=== PATIENT | female | born 1980 | race Caucasian/White ===

== ENCOUNTER 2016-10-13 13:44 | Emergency (ER) | payer MEDICAID, OTHER ==
[2016-10-13 13:51] VITALS: BP 122/69; RESP 20
--- NOTE | 2016-10-13 14:39 | ED ---
General Adult HPI - General Chief complaint: Chest Pain Stated complaint: [facility] Time Seen by Provider: 10/13/16 14:17 Source: patient, RN notes reviewed Mode of arrival: ambulatory Limitations: no limitations - History of Present Illness Initial comments: Chief complaint history of present illness a 36-year-old female. 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 While attending to the patient the patient kicked her in the chest with both her feet she fell back into a chair. Complains of anterior chest wall discomfort increases with taking deep breaths. - Related Data Home Medications Medication Instructions Recorded Confirmed ALPRAZolam [Xanax] 0.25 mg PO HS PRN 10/13/16 10/13/16 Previous Rx's Medication Instructions Recorded Ibuprofen [Motrin] 600 mg PO Q6HR PRN #20 tab 10/13/16 Allergies Allergy/AdvReac Type Severity Reaction Status Date / Time No Known Allergies Allergy Verified 10/13/16 14:13 Review of Systems ROS Statement: Those systems with pertinent positive or pertinent negative responses have been documented in the HPI. Review of systems. No complaint of any visual acuity changes no headache no neck pain. Middle of the upper spine but with full range of motion. No bruises noted. Mild anterior chest discomfort with deep breathing and minimal with pushing. No complaint of shortness of breath. No palpitations. No abdominal pain. No extremity pain. No evidence of complaints of any neuro deficits. Past medical problems asthma as a child but no problems since then. Surgeries gallbladder, and septoplasty. Family cancer problems include liver, pancreas, skin and breast. Patient has mild seasonal ALLERGIES. Never smoker. Drinks alcohol socially. Occupation she works in the hospital as a nurse. ROS Other: All systems not noted in ROS Statement are negative. Past Medical History Past Medical History: Asthma, GERD/Reflux Additional Past Medical History / Comment(s): SEASONAL ALLERGIES, HX OF ANEMIA. , HAVING ABDOMINAL PAIN. History of Any Multi-Drug Resistant Organisms: None Reported Past Surgical History: Cholecystectomy Additional Past Surgical History / Comment(s): EXPLORATORY LAP, IN VITRO FERTILIZATION. Past Anesthesia/Blood Transfusion Reactions: No Reported Reaction, Family History of Problems w/ Anesthesia, Motion Sickness Additional Past Anesthesia/Blood Transfusion Reaction / Comment(s): PTS MOTHER= PONV Past Psychological History: No Psychological Hx Reported Smoking Status: Never smoker Past Alcohol Use History: None Reported Past Drug Use History: None Reported - Past Family History Father Family Medical History: Cancer Additional Family Medical History / Comment(s): LIVER/PANCREATIC CANCER General Exam - General Exam Comments Initial Comments: General: The patient is awake and alert, in no distress, and does not appear acutely ill. Patient's chief complaint was that while attending to a patient here at the hospital the patient kicked her with both feet non-Q back into a chair. Vital signs are temperature 97.8 pulse 92 respiratory rate 20 pulse ox on percent room air blood pressure 122/69. BP of 122 systolic noted. The patient is mildly uncomfortable. Eye: Pupils are equal, round and reactive to light, extra-ocular movements are intact ; there is normal conjunctiva bilaterally. No signs of icterus. Ears, nose, mouth and throat: There are moist mucous membranes and no oral lesions. Neck: The neck is supple, there is no tenderness , no anterior cervical lymphadenopathy. Cardiovascular: There is a regular rate and rhythm. No murmur, rub or gallop is appreciated. Respiratory: Lungs are clear to auscultation, respirations are non-labored, breath sounds are equal. No wheezes, stridor, rales, or rhonchi. Mild discomfort with deep inspiration. Gastrointestinal: Soft, non-distended, non-tender abdomen without masses or organomegaly noted. There is no rebound or guarding present. No CVA tenderness. Bowel sounds are unremarkable. Back: Minimal tenderness to upper thoracic region posteriorly. But with full range of motion. No bruising noted. Musculoskeletal: Normal ROM, no tenderness, There is no pedal edema. There is no calf tenderness or swelling. Sensation intact. Neurological: No evidence of her complaints of any neurological deficits. No focal or lateralizing findings appreciated. Skin: Skin is warm and dry and no rashes or lesions are noted. Limitations: no limitations Course Vital Signs 10/13/16 13:49 Temperature 97.8 F Pulse Rate 92 Respiratory 20 Rate Blood Pressure 122/69 O2 Sat by Pulse 100 Oximetry Medical Decision Making - Medical Decision Making Medical decision making; patient's chest x-ray was done AP and lateral view and reviewed by radiologist. His impression is no acute cardiopulmonary process. As read by Dr. Henderson Patient be discharged back to work. Told follow up with [facility] as needed. And/or her family physician. Advised to take ibuprofen or Tylenol for discomfort. Disposition Clinical Impression: Chest wall contusion Disposition: HOME SELF-CARE Condition: Fair Instructions: Contusion in Adults (ED) Additional Instructions: Use Tylenol or ibuprofen for discomfort. Follow-up with family physician or [facility] as directed. Return emergency room as needed. Prescriptions: Ibuprofen [Motrin] 600 mg PO Q6HR PRN #20 tab PRN Reason: Pain Time of Disposition: 15:29
--- NOTE | 2016-10-13 15:13 | XR ---
EXAMINATION TYPE: XR chest 2V DATE OF EXAM: 10/13/2016 3:00 PM COMPARISON: NONE HISTORY: Trauma, pain TECHNIQUE: Frontal and lateral views of the chest are obtained. FINDINGS: There is no focal air space opacity, pleural effusion, or pneumothorax seen. The cardiac silhouette size is within normal limits. Surgical clips in the right upper quadrant. The osseous st ructures are intact. IMPRESSION: No acute cardiopulmonary process.
[2016-10-13 15:37] VITALS: PULSE 98; TEMP 98
== END 2016-10-13 15:37 | disposition home or self-care (01) ==
LOC: EC 13:44
DX: S20.219A Contusion of unspecified front wall of thorax, initial encounter (principal); W07.XXXA Fall from chair, initial encounter; Y92.239 Unspecified place in hospital as the place of occurrence of the external cause; Y99.0 Civilian activity done for income or pay
CPT/HCPCS: 71020; 99284

== ENCOUNTER → 2017-02-11 | Outpatient (CLI) | payer BC ==
--- NOTE | 2017-02-11 13:04 | US ---
EXAMINATION TYPE: US axilla extremity LT DATE OF EXAM: 02/11/2017 COMPARISON: NONE CLINICAL HISTORY: Mass R22.9. Pt states left axilla pain and swelling Normal appearing lymph nodes within left axilla 4-5 mm in size/ No abnormality appreciated IMPRESSION: 1. NO AXILLARY MASS. 2. NORMAL-SIZED AXILLARY LYMPH NODES.
== END | disposition home or self-care (01) ==
LOC: RADUSWWP 12:24
PROVIDERS: ATTEND Family Medicine
DX: R22.32 Localized swelling, mass and lump, left upper limb (principal)

== ENCOUNTER → 2018-02-24 | Outpatient (CLI) | payer SELFPAY ==
--- NOTE | 2018-03-06 11:41 | MM ---
Reason for exam: screening (asymptomatic). Last mammogram was performed 1 year and 10 months ago. History: Family history of breast cancer in maternal grandmother at age 50. Took hormonal contraceptives for 8 years beginning at age 20. Took other hormone for 2 years beginning at age 30. Physical Findings: A clinical breast exam by your physician is recommended on an annual basis and results should be correlated with mammographic findings. MG 3D Screening Mammo W/Cad Bilateral CC and MLO view(s) were taken. Prior study comparison: April 29, 2016, bilateral MG 3d screening mammo w/cad. The breast tissue is heterogeneously dense. This may lower the sensitivity of mammography. There is no discrete abnormality. No significant changes when compared with prior studies. ASSESSMENT: Negative, BI-RAD 1 RECOMMENDATION: Routine screening mammogram of both breasts in 1 year.
== END | disposition home or self-care (01) ==
LOC: RADMAMWWP 11:07
PROVIDERS: ATTEND Family Medicine
DX: Z12.31 Encounter for screening mammogram for malignant neoplasm of breast (principal)
CPT/HCPCS: 77063; 77067

== ENCOUNTER → 2019-12-14 | Outpatient (CLI) | payer BC ==
--- NOTE | 2019-12-18 08:23 | MM ---
Reason for exam: screening (asymptomatic). Last mammogram was performed 1 year and 10 months ago. History: Family history of breast cancer in maternal grandmother at age 50. Took hormonal contraceptives for 8 years beginning at age 20. Took other hormone for 2 years beginning at age 30. Physical Findings: A clinical breast exam by your physician is recommended on an annual basis and results should be correlated with mammographic findings. MG 3D Screening Mammo W/Cad Bilateral CC and MLO view(s) were taken. Prior study comparison: February 24, 2018, bilateral MG 3d screening mammo w/cad. April 29, 2016, bilateral MG 3d screening mammo w/cad. The breast tissue is heterogeneously dense. This may lower the sensitivity of mammography. There is no discrete abnormality. ASSESSMENT: Negative, BI-RAD 1 RECOMMENDATION: Routine screening mammogram of both breasts in 1 year.
== END | disposition home or self-care (01) ==
LOC: RADMAMWWP 15:49
PROVIDERS: ATTEND Family Medicine
DX: Z12.31 Encounter for screening mammogram for malignant neoplasm of breast (principal); Z80.3 Family history of malignant neoplasm of breast
CPT/HCPCS: 77063; 77067

== ENCOUNTER → 2021-08-28 | Outpatient (CLI) | payer BC ==
--- NOTE | 2021-08-28 17:39 | US ---
EXAMINATION TYPE: US axilla LT DATE OF EXAM: 08/28/2021 COMPARISON: NONE CLINICAL HISTORY: R22.9 Lump left axilla. Lt axilla palpable lump with pain for the past 6 weeks neva ent is currently 24 weeks . No mass or fluid collection seen in area of concern IMPRESSION: No evidence of mass or fluid collection.
== END | disposition home or self-care (01) ==
LOC: RADUSWWP 15:13
PROVIDERS: ATTEND Family Medicine
DX: R22.9 Localized swelling, mass and lump, unspecified (principal)

== ENCOUNTER 2021-12-04 08:16 | Inpatient (IN) | payer BC ==
[2021-12-17] MEDS ORDERED: LIDOCAINE 0.5% (PF) 5 MG/ML (50 ML SDV) SQ PRN (00:52)
[2021-12-17] MEDS ORDERED: OXYTOCIN 10 UNIT/ML 1 ML VIAL IM PRN (00:52)
[2021-12-17] MEDS ORDERED: TERBUTALINE 1 MG/ML VIAL SQ PRN (00:52)
[2021-12-17] MEDS ORDERED: CARBOPROST TROMETHAMINE 250 MCG/ML 1 ML AMP IM PRN (00:52)
[2021-12-17] MEDS ORDERED: METHYLERGONOVINE 0.2 MG/ML 1 ML AMP IM PRN (00:52)
[2021-12-17] MEDS: LACTATED RINGERS 1,000 ML IV SCH ×2 (01:20→13:44)
[2021-12-17 01:36] LABS: Basophils # (A) 0.1 k/uL (0-0.2); Basophils % (A) 1 %; Eosinophils # (A) 0.1 k/uL (0-0.7); Eosinophils % (A) 1 %; HCT 34.2 % (34.0-46.0); HGB 11.4 gm/dL (11.4-16.0); Lymphocytes # (A) 1.1 k/uL (1.0-4.8); Lymphocytes % (A) 10 %; MCH 32.4 pg (25.0-35.0); MCHC 33.3 g/dL (31.0-37.0); MCV 97.3 fL (80.0-100.0); Mean Platelet Volume 7.8; Monocytes # (A) 0.6 k/uL (0-1.0); Monocytes % (A) 6 %; Neutrophils # (A) 8.4 k/uL (1.3-7.7); Neutrophils % (A) 81 %; Platelet Count 221 k/uL (150-450); RBC 3.51 m/uL (3.80-5.40); RDW 13.3 % (11.5-15.5); WBC 10.3 k/uL (3.8-10.6)
[2021-12-17] MEDS ORDERED: ROPIVACAINE 100 MG, fentaNYL (PF). 200 MCG in SODIUM CHLORIDE 0.9% 76 ML EPIDURAL ONE (02:01)
--- NOTE | 2021-12-17 06:37 | P.HPOB ---
History of Present Illness H&P Date: 12/17/21 Chief Complaint: Labor at 39-4/7 weeks This is a 41 year old 4 para 2012 woman who is admitted at 39-4/7 weeks gestation in active labor. Her has been uncomplicated up until this point. She has had approximately 24 hours of latent labor but did eventually make cervical change in triage and is admitted. Obstetric history significant for normal spontaneous vaginal deliveries in 2010 and 2012. VTOP in 1999. Laboratory data: Blood type A+, antibody screen negative, rubella immune, VDRL nonreactive, hep Beatriz surface antigen negative, HIV negative, gonorrhea and clinic cultures negative, group B strep negative, glucose tolerance testing within normal limits. Review of Systems All systems: negative Past Medical History Past Medical History: Asthma, GERD/Reflux Additional Past Medical History / Comment(s): SEASONAL ALLERGIES, HX OF ANEMIA., HAVING ABDOMINAL PAIN. History of Any Multi-Drug Resistant Organisms: None Reported Past Surgical History: Cholecystectomy Additional Past Surgical History / Comment(s): EXPLORATORY LAP, IN VITRO FERTILIZATION. Past Anesthesia/Blood Transfusion Reactions: No Reported Reaction, Family History of Problems w/ Anesthesia, Motion Sickness Additional Past Anesthesia/Blood Transfusion Reaction / Comment(s): PTS MOTHER=PONV Past Psychological History: No Psychological Hx Reported Smoking Status: Never smoker Past Alcohol Use History: None Reported Past Drug Use History: None Reported - Past Family History Father Family Medical History: Cancer Additional Family Medical History / Comment(s): LIVER/PANCREATIC CANCER Medications and Allergies Home Medications Medication Instructions Recorded Confirmed Type Aspirin [Children's Aspirin] 81 mg PO DAILY 12/16/21 12/16/21 History L.acidoph,Paracasei, B.lactis 1 each PO DAILY 12/16/21 12/16/21 History [Probiotic] Metoclopramide [Reglan] 10 mg PO DAILY PRN 12/16/21 12/16/21 History Pnv No.95/Ferrous Fum/Folic AC 1 each PO DAILY 12/16/21 12/16/21 History [ Multivitamin Tablet] Allergies Allergy/AdvReac Type Severity Reaction Status Date / Time No Known Allergies Allergy Verified 12/16/21 09:42 Exam Vital Signs Temp Pulse Resp BP 12/17/21 00:51 97.2 F L 89 16 121/69 Intake and Output 12/16/21 12/16/21 12/17/21 14:59 22:59 06:59 Other: Weight 82.554 kg Targeted physical exam is performed. This is a visibly gravid female. On pelvic examination the cervix is 5 cm dilated, 80% effaced and the vertex in the -2 station. Artificial rupture of membranes is undertaken and meconium stained fluid is noted. heart tones are category 1. She is irregularly markus every 2-7 minutes. Results Result Diagrams: 12/17/21 01:17 Abnormal Lab Results - Last 24 Hours (Table) 12/17/21 Range/Units 01:17 RBC 3.51 L (3.80-5.40) m/uL Neutrophils # 8.4 H (1.3-7.7) k/uL Assessment and Plan (1) Advanced maternal age (AMA) in Current Visit: Yes Status: Acute Code(s): YLI2406 - SNOMED Code(s): 626994288 (2) Spontaneous onset of labor Current Visit: Yes Status: Acute Code(s): BIR6487 - SNOMED Code(s): 85598559 (3) Meconium in amniotic fluid Current Visit: Yes Status: Acute Code(s): P96.83 - MECONIUM STAINING SNOMED Code(s): 5787470 Plan: 41-year-old 4 para 2 woman admitted at 39-4/7 weeks gestation in spontaneous active labor. Meconium is noted in the fluid. status is currently reassuring by external monitoring. She is group B strep negative and Rh+. She has epidural anesthetic in place and I anticipate normal spontaneous vaginal delivery.
[2021-12-17] MEDS ORDERED: OXYTOCIN 30 UNITS/500 ML NS 30 UNIT in SALINE 1 500ML.BAG IV SCH ×2 (06:45→11:15)
[2021-12-17] MEDS ORDERED: ONDANSETRON 4 MG/2 ML VIAL IVP STA (09:12)
[2021-12-17] MEDS ORDERED: diphenhydrAMINE 50 MG/ML 1 ML VIAL IVP PRN ×2 (11:06)
[2021-12-17] MEDS ORDERED: diphenhydrAMINE 25 MG CAP PO PRN (11:06)
[2021-12-17] MEDS ORDERED: BENZOCAINE/MENTHOL SPRAY 1 GM/SPRAY AEROSOL TOPICAL PRN (11:06)
[2021-12-17] MEDS ORDERED: diphenhydrAMINE 50 MG CAP PO PRN (11:06)
[2021-12-17] MEDS ORDERED: LANOLIN CREAM 5 GM TUBE TOPICAL PRN (11:06)
[2021-12-17] MEDS ORDERED: HYDROCORTISONE 2.5% RECTAL CREAM 30 GM TUBE RECTAL PRN (11:06)
[2021-12-17] MEDS ORDERED: ZOLPIDEM 5 MG TAB PO PRN (11:06)
[2021-12-17] MEDS ORDERED: SIMETHICONE 80 MG CHEWABLE PO PRN (11:06)
--- NOTE | 2021-12-17 11:06 | P.PROBDLV ---
Vaginal Delivery Note - . Vaginal Delivery Note: Findings: Female in the vertex right occiput anterior position with nuchal cord 1. Apgars of 8 at 1 minute and 9 at 5 minutes. Weight 8 lbs. 4 oz. Intact, three-vessel cord. First-degree perineal laceration. EBL 100 mL's. Delivery summary: This is a 41-year-old 4 para 2012 woman who presented at 39-4/7 weeks gestation in spontaneous active labor. Following admission she received an epidural anesthetic. Her contractions did space out and Pitocin augmentation was initiated. She at 5 cm dilated she underwent artificial rupture of membranes and meconium-stained fluid was noted. She had category 1 heart tones in the first stage. She did reach complete cervical dilation and began pushing with excellent maternal effort. With a couple of pushes she brought the vertex to . At that time she was repositioned, prepped and draped on in modified Ethel position. With additional maternal effort the head delivered from the right occiput anterior position. Nuchal cord 1 was reduced. Anterior followed by the posterior shoulders were delivered without difficulty over a first-degree perineal laceration. The rest the was delivered onto the field and the nose and mouth were bulb suctioned. Infant had a vigorous cry on the perineum. The infant was placed on the maternal abdomen and the cord was clamped and cut. The infant was taken to the warmer for pediatric evaluation. The perineum was inspected and a first-degree laceration was noted. This was infused with lidocaine and repaired with 3-0 Vicryl suture in the usual fashion. An intact, three-vessel cord placenta was then expressed after a less than 5 minute third stage of labor. The uterus was massaged and was noted to be firm below the level of the umbilicus. The vagina was further inspected as was the perineum and no further lacerations were noted. Both mother and infant were doing well post delivery in the room.
[2021-12-17] MEDS: IBUPROFEN 600 MG TAB PO PRN ×2 (11:42→18:06)
[2021-12-17] MEDS: ACETAMINOPHEN TAB 325 MG TAB PO PRN ×2 (13:18→19:44)
[2021-12-17] MEDS: SENNOSIDES-DOCUSATE SODIUM 1 EACH TAB PO SCH (22:43)
[2021-12-18] MEDS: IBUPROFEN 600 MG TAB PO PRN ×2 (01:11→08:11)
[2021-12-18] MEDS: ACETAMINOPHEN TAB 325 MG TAB PO PRN ×2 (05:16→11:01)
[2021-12-18 06:56] LABS: Basophils % (A) 0 %; Eosinophils # (A) 0.2 k/uL (0-0.7); Eosinophils % (A) 2 %; HCT 29.6 % (34.0-46.0); Lymphocytes # (A) 1.2 k/uL (1.0-4.8); Lymphocytes % (A) 14 %; MCH 32.6 pg (25.0-35.0); MCHC 33.3 g/dL (31.0-37.0); MCV 97.8 fL (80.0-100.0); Mean Platelet Volume 8.2; Monocytes # (A) 0.4 k/uL (0-1.0); Monocytes % (A) 5 %; Neutrophils # (A) 6.4 k/uL (1.3-7.7); Neutrophils % (A) 75 %; Platelet Count 215 k/uL (150-450); RBC 3.03 m/uL (3.80-5.40); WBC 8.6 k/uL (3.8-10.6)
[2021-12-18 07:07] LABS: HGB 9.9 gm/dL (11.4-16.0)
[2021-12-18] MEDS: SENNOSIDES-DOCUSATE SODIUM 1 EACH TAB PO SCH (08:11)
--- NOTE | 2021-12-18 09:04 | P.DS ---
Providers Date of admission: 12/17/21 00:37 Expected date of discharge: 12/18/21 Attending physician: Anya Espinoza Primary care physician: Hemal Lance - Discharge Diagnosis(es) (1) Advanced maternal age (AMA) in Current Visit: Yes Status: Acute (2) Spontaneous onset of labor Current Visit: Yes Status: Acute (3) Meconium in amniotic fluid Current Visit: Yes Status: Acute (4) Normal spontaneous vaginal delivery Current Visit: Yes Status: Acute (5) Nuchal cord Current Visit: Yes Status: Acute (6) Perineal laceration with delivery, first degree Current Visit: Yes Status: Acute Hospital Course: This is a 41-year-old 4 now para 3 woman who was admitted at 39-4/7 weeks gestation in spontaneous active labor. Following admission she did receive an epidural anesthetic. She required Pitocin augmentation of labor. She underwent artificial rupture of membranes and meconium-stained fluid was noted. She had category 1 heart tones throughout her first stage of labor. She reached complete cervical dilation and had a rapid second stage of labor. She delivered a liveborn female over a first-degree perineal laceration. Nuchal cord 1. Apgars of 8 at 1 minute and 9 at 5 minutes weighing 8 lbs. 4 oz. Please see the delivery summary for details. The patient's course was unremarkable. By day #1 her vital signs were stable, hemoglobin was 9.9 and her lochia was decreasing. She was breast-feeding successfully. Her pain was well-controlled. She was ambulating and voiding without difficulty. She was therefore discharged home with routine instructions for care and follow-up. Patient Condition at Discharge: Good Plan - Discharge Summary New Discharge Prescriptions: No Action Pnv No.95/Ferrous Fum/Folic AC [ Multivitamin Tablet] 1 each PO DAILY Metoclopramide [Reglan] 10 mg PO DAILY PRN PRN Reason: Nausea L.acidoph,Paracasei, B.lactis [Probiotic] 1 each PO DAILY Aspirin [Children's Aspirin] 81 mg PO DAILY Discharge Medication List Aspirin [Children's Aspirin] 81 mg PO DAILY 12/16/21 [History] L.acidoph,Paracasei, B.lactis [Probiotic] 1 each PO DAILY 12/16/21 [History] Metoclopramide [Reglan] 10 mg PO DAILY PRN 12/16/21 [History] Pnv No.95/Ferrous Fum/Folic AC [ Multivitamin Tablet] 1 each PO DAILY 12/16/21 [History] Follow up Appointment(s)/Referral(s): Anya Espinoza MD [STAFF PHYSICIAN] - 6 Weeks Activity/Diet/Wound Care/Special Instructions: Follow-up in the office in 6 weeks . Call with any concerning signs or symptoms including heavy vaginal bleeding, severe abdominal pain, fever greater than 101, swelling or redness of the lower extremities, foul vaginal discharge, or signs of depression. Nothing in the vagina for 6 weeks after delivery, specifically no intercourse. Discharge Disposition: HOME SELF-CARE
[2021-12-18 09:44] VITALS: RESP 16
[2021-12-18 13:16] VITALS: BP 99/53; PULSE 88; TEMP 97.9
== END 2021-12-18 12:35 | disposition home or self-care (01) | DRG 807 ==
LOC: 4FBP 12-17 00:37
PROVIDERS: ADMIT Obstetrics & Gynecology; ATTEND Obstetrics & Gynecology
PROC: 10E0XZZ Delivery of Products of Conception, External Approach (ICD-10-PCS; principal; 2021-12-17)
PROC: 0HQ9XZZ Repair Perineum Skin, External Approach (ICD-10-PCS; 2021-12-17)
DX: O69.81X0 Labor and delivery complicated by cord around neck, without compression, not applicable or unspecified (principal); Z37.0 Single live birth; O09.523 Supervision of elderly multigravida, third trimester; O99.52 Diseases of the respiratory system complicating childbirth; J45.909 Unspecified asthma, uncomplicated; O70.0 First degree perineal laceration during delivery; O77.0 Labor and delivery complicated by meconium in amniotic fluid; Z3A.39 39 weeks gestation of pregnancy; Z79.82 Long term (current) use of aspirin
CPT/HCPCS: 85025; 86850; 86900; 86901

== ENCOUNTER 2021-12-16 09:24 | Outpatient (CLI) | payer BC ==
[2021-12-16] MEDS ORDERED: LACTATED RINGERS 1,000 ML IV SCH (10:30)
[2021-12-16 12:45] VITALS: BP 131/66; PULSE 96; RESP 17
--- NOTE | 2021-12-29 08:16 | P.MSEPDOC ---
Presenting Problems - Arrival Data Date of Arrival on Unit: 12/16/21 Time of Arrival on Unit: 09:24 Mode of Transport: Ambulatory - Complaint OB-Reason for Admission/Chief Complaint: Possible Onset of Labor Comment: pt presents to triage for contractions and difficulty urinating Medical History - Information : 3 Para: 2 Term: 2 : 0 Abortions: Spontaneous or Elective: 0 Number of Living Children: 2 - Gestational Age Gestational Age by SAMMI (wks/days): 39 Weeks and 3 Days Review of Systems - Review of Systems Constitutional: No problems Breast: No problems ENT: No problems Cardiovascular: No problems Respiratory: No problems Gastrointestinal: No problems Genitourinary: No problems Musculoskeletal: No problems Neurological: No problems Skin: No problems Vital Signs - Pulse Right Radial Pulse Rate: 96 Pulse Assessment Method: Automatic Cuff - Respirations Respiratory Rate: 17 Oxygen Delivery Method: Room Air - Blood Pressure Right Arm Blood Pressure: 131/66 Blood Pressure Mean: 87 Blood Pressure Source: Automatic Cuff Medical Screen Scoring - Cervical Exam Dilation (cm): 3 Effacement (%): 80 Station: -2 Membranes: Intact - Uterine Contractions Frequency From (mins): 2 Frequency To (mins): 7 Duration From (seconds): 50 Duration To (seconds): 70 Intensity: Mild Resting: Soft to palpation - Assessment - Baby A Baseline FHR: 140 Heart Rate - NICHD Category: Category I (Normal) NST: Reactive Physician Notification - Physician Notified Physician Notified Date: 12/16/21 Physician Notified Time: 12:04 Physician: Anya Espinoza Order Received: Yes - Notification Comment Comment: pt has cat 1 FHT's, contractions 2-7 min apart, pt rates pain at 6- 18/10, given one bag of LR, 3 cervical exams performed without change on the last 2 exams, pt discharged home, she is scheduled for IOL tomorrow, she will return in am or before with any other concerns of labor Maternal Triage Index - Maternal Triage Index Presenting for scheduled procedure w/no complaint: No - Stat/Priority 1 Stat Priority 1: No - Urgent/Priority 2 Urgent Priority 2: No - Prompt/Priority 3 Prompt Priority 3: Yes Criteria Met for Priority 3: pt presents to triage for contractions and difficulty urinating, GA 39 09/21 Disposition - Disposition OB Disposition: Triage, Discharge to home, Written follow up instructions reviewed Discharge Date: 12/16/21 Discharge Time: 12:20 I agree with the RN Medical Screening Exam: Yes Case reviewed; plan agreed upon as documented in EMR&OBIX.: Yes Diagnosis: Latent labor at term
== END 2021-12-16 12:20 | disposition home or self-care (01) ==
LOC: FBPOP 09:24
PROVIDERS: ATTEND Obstetrics & Gynecology
DX: O63.9 Long labor, unspecified (principal); Z3A.39 39 weeks gestation of pregnancy
CPT/HCPCS: 59025; 96360; 96361; 99214

== ENCOUNTER → 2022-06-01 | Outpatient (CLI) | payer BC ==
--- NOTE | 2022-06-01 10:23 | MR ---
EXAMINATION TYPE: MR brain and iac wo/w con DATE OF EXAM: 06/01/2022 COMPARISON: NONE HISTORY: Right hearing loss CONTRAST: mL MultiHance TECHNIQUE: T1-weighted sagittal, diffusion, T2, and FLAIR axial views of the brain are submitted. The high-reso lution T2 axial and postcontrast T1 axial and coronal views of the IACs are submitted. CONTRAST: 7 mL Gadavist FINDINGS: There is no pathologic enhancement of the seventh and eighth cranial nerve complex. There is no acou stic neuroma. Changes of right-sided mastoiditis is noted and there are findings compatible with chronic sinusitis. Orbits are symmetric. Craniocervical junction maintained. Sella turcica are normal. Ventricles, basal cisterns, and sulci overlying the convexities are compatible patient's age. No siza ble areas of abnormal signal are seen within the white matter. No midline shift or mass effect. Diffu tameka imaging demonstrates no evidence of acute ischemia. Postcontrast images demonstrate no evidence of enhancing mass or mass effect. No cerebellopontine ang le mass. IMPRESSION: 1. No cerebellopontine angle mass or acoustic schwannoma. 2. Right-sided mastoiditis. 3. Chronic sinusitis
== END | disposition home or self-care (01) ==
LOC: RADMRIMAIN 09:04
PROVIDERS: ATTEND Otolaryngology
DX: J32.9 Chronic sinusitis, unspecified (principal); H70.91 Unspecified mastoiditis, right ear
CPT/HCPCS: 70553; A9585

== ENCOUNTER 2022-08-10 20:39 | Emergency (ER) | payer BC ==
[2022-08-10 20:42] VITALS: TEMP 97.5
[2022-08-10] MEDS ORDERED: SODIUM CHLORIDE 0.9% 1,000 ML IV STA (21:14)
[2022-08-10] MEDS ORDERED: ONDANSETRON 4 MG/2 ML VIAL IVP STA (21:14)
[2022-08-10] MEDS ORDERED: HYDROmorphone 0.5 MG/0.5 ML SYRINGE IVP STA (21:15)
[2022-08-10 21:43] LABS: ALT 56 U/L (4-34); AST 121 U/L (14-36); African American GFR (CKD) >90 (>60 ml/min/1.73 sqM); Albumin 4.5 g/dL (3.5-5.0); Alkaline Phosphatase 86 U/L (38-126); Anion Gap 7 mmol/L; Appearance,Urine Clear (Clear); Bilirubin,Urine Negative (Negative); Blood Urea Nitrogen 16 mg/dL (7-17); Blood,Urine Small (Negative); Calcium 9.2 mg/dL (8.4-10.2); Carbon Dioxide 29 mmol/L (22-30); Chloride 105 mmol/L (98-107); Color,Urine Light Yellow; Glucose 116 mg/dL (74-99); Glucose,Urine (UA) Negative (Negative); Ketones,Urine Negative (Negative); Leukocyte Esterase,Urine Negative (Negative); Lipase 122 U/L (23-300); Nitrite,Urine Negative (Negative); Non-African American GFR(CKD) >90 (>60 ml/min/1.73 sqM); Potassium 3.8 mmol/L (3.5-5.1); Protein,Urine Negative (Negative); RBC,Urine 5 /hpf (0-5); Sodium 141 mmol/L (137-145); Specific Gravity,Urine 1.014 (1.001-1.035); Squamous Epithelial Cell,Urine <1 /hpf (0-4); Total Bilirubin 0.3 mg/dL (0.2-1.3); Total Protein 7.2 g/dL (6.3-8.2); Urobilinogen,Urine <2.0 mg/dL (<2.0); WBC,Urine <1 /hpf (0-5)
--- NOTE | 2022-08-10 22:09 | ED ---
Abdominal Pain HPI - General Chief Complaint: Abdominal Pain Stated Complaint: abd pain Time Seen by Provider: 08/10/22 20:47 Source: patient, family, RN notes reviewed Mode of arrival: ambulatory Limitations: no limitations - History of Present Illness Initial Comments: 42-year-old female presents emergency Department chief complaint of epigastric pain. Patient states that she felt dizzy throughout the day is it feel well but states that she went to sleep and states that she started having severe pain. Patient states that it is in her epigastric and radiates up. She did take 2 Tums prior arrival which seemed to help for a few minutes. Patient denies any fevers or chills she's had a prior cholecystectomy by Dr. humphries. Patient states that she's had multiple bowel movements today. Patient denies any dysuria hematuria patient offers no complaints. - Related Data Home Medications Medication Instructions Recorded Confirmed Aspirin [Children's Aspirin] 81 mg PO DAILY 12/16/21 12/17/21 L.acidoph,Paracasei, B.lactis 1 each PO DAILY 12/16/21 12/17/21 [Probiotic] Metoclopramide [Reglan] 10 mg PO DAILY PRN 12/16/21 12/17/21 Pnv No.95/Ferrous Fum/Folic AC 1 each PO DAILY 12/16/21 12/17/21 [ Multivitamin Tablet] Previous Rx's Medication Instructions Recorded Ondansetron Odt [Zofran Odt] 4 mg PO Q8HR PRN #14 tab 08/10/22 Allergies Allergy/AdvReac Type Severity Reaction Status Date / Time No Known Allergies Allergy Verified 12/16/21 09:42 Review of Systems ROS Statement: Those systems with pertinent positive or pertinent negative responses have been documented in the HPI. ROS Other: All systems not noted in ROS Statement are negative. Past Medical History Past Medical History: Asthma, GERD/Reflux Additional Past Medical History / Comment(s): SEASONAL ALLERGIES, HX OF ANEMIA., HAVING ABDOMINAL PAIN. postpardum History of Any Multi-Drug Resistant Organisms: None Reported Past Surgical History: Cholecystectomy Additional Past Surgical History / Comment(s): EXPLORATORY LAP, IN VITRO FERTILIZATION. Past Anesthesia/Blood Transfusion Reactions: No Reported Reaction, Family History of Problems w/ Anesthesia, Motion Sickness Additional Past Anesthesia/Blood Transfusion Reaction / Comment(s): PTS MOTHER=PONV Past Psychological History: No Psychological Hx Reported Smoking Status: Never smoker Past Alcohol Use History: None Reported Past Drug Use History: None Reported - Past Family History Father Family Medical History: Cancer Additional Family Medical History / Comment(s): LIVER/PANCREATIC CANCER General Exam Limitations: no limitations General appearance: alert, in no apparent distress Head exam: Present: atraumatic, normocephalic, normal inspection Eye exam: Present: normal appearance, PERRL, EOMI. Absent: scleral icterus, conjunctival injection, periorbital swelling ENT exam: Present: normal exam, normal oropharynx, mucous membranes moist Neck exam: Present: normal inspection, full ROM. Absent: tenderness, meningismus, lymphadenopathy Respiratory exam: Present: normal lung sounds bilaterally. Absent: respiratory distress, wheezes, rales, rhonchi, stridor Cardiovascular Exam: Present: normal rhythm, tachycardia, normal heart sounds. Absent: systolic murmur, diastolic murmur, rubs, gallop, clicks GI/Abdominal exam: Present: soft, tenderness, normal bowel sounds. Absent: distended, guarding, rebound, rigid Back exam: Absent: CVA tenderness (R), CVA tenderness (L) Skin exam: Present: warm, dry, intact, normal color. Absent: rash Course Vital Signs 08/10/22 08/10/22 20:39 22:10 Temperature 97.5 F L Pulse Rate 109 H 98 Respiratory 24 17 Rate Blood Pressure 145/89 121/70 O2 Sat by Pulse 99 98 Oximetry Medical Decision Making - Medical Decision Making Was pt. sent in by a medical professional or institution (, PA, PUBLIC INFORMATION DIRECTOR, urgent care, hospital, or chcf...) When possible be specific @ -No Did you speak to anyone other than the patient for history (EMS, parent, family, police, friend...)? What history was obtained from this source @ -No Did you review nursing and triage notes (agree or disagree)? Why? @ -I reviewed and agree with nursing and triage notes Were old charts reviewed (outside hosp., previous admission, EMS record, old EKG, old radiological studies, urgent care reports/EKG's, chcf records)? Report findings @ -No old charts were reviewed Differential Diagnosis (chest pain, altered mental status, abdominal pain women, abdominal pain men, vaginal bleeding, weakness, fever, dyspnea, syncope, headache, dizziness, GI bleed, back pain, seizure, CVA, palpatations, mental health)? @ -[Differential Abdominal Pain Women: Appendicitis, Cholecystitis, diverticulosis, ischemic bowel, pancreatitis, hepatitis, UTI, gastroenteritis, AAA, incarcerated hernia, bowel obstruction, constipation, inflammatory bowel, hepatitis, peptic ulcer disease, splenic infarction, perforated viscus, vulvitis, ovarian torsion, PID, kidney stone, placenta abruption, this is not meant to be an all-inclusive list EKG interpreted by me (3pts min.). @ -None X-rays interpreted by me (1pt min.). @ -None done CT interpreted by me (1pt min.). @ -[CT of the abdomen pelvis did not show any acute intra-abdominal process still there is a large amount of food bolus stomach, small intestine with moderate stool noted U/S interpreted by me (1pt. min.). @ -None done What testing was considered but not performed or refused? (CT, X-rays, U/S, labs)? Why? @ -None What meds were considered but not given or refused? Why? @ -None Did you discuss the management of the patient with other professionals (professionals i.e. , PA, PUBLIC INFORMATION DIRECTOR, lab, RT, psych nurse, social studies department chair, student specialist, teacher, chief operating officer, rn case manager)? Give summary @ -No Was smoking cessation discussed for >3mins.? @ -No Was critical care preformed (if so, how long)? @ -No Were there social determinants of health that impacted care today? How? (Homelessness, low income, unemployed, alcoholism, drug addiction, transportation, low edu. Level, literacy, decrease access to med. care, senior living, rehab)? @ -No Was there de-escalation of care discussed even if they declined (Discuss DNR or withdrawal of care, Hospice)? DNR status @ -No What co-morbidities impacted this encounter? (DM, HTN, Smoking, COPD, CAD, Cancer, CVA, ARF, Chemo, Hep., AIDS, mental health diagnosis, sleep apnea, morbid obesity)? @ -None Was patient admitted / discharged? Hospital course, mention meds given and route, prescriptions, significant lab abnormalities, going to OR and other pertinent info. @ -Discharge I did offer admission secondary to ongoing abdominal pain there is concerns for delayed gastric emptying on CT showing large food bolus stomach patient states that she wants try going home at this time. Offered surgery consult with [facility]. Labs are unremarkable. Undiagnosed new problem with uncertain prognosis? @ -No Drug Therapy requiring intensive monitoring for toxicity (Heparin, Nitro, Insulin, Cardizem)? @ -No Were any procedures done? @ -No Diagnosis/symptom? @ -Abdominal pain Acute, or Chronic, or Acute on Chronic? @ -Acute Uncomplicated (without systemic symptoms) or Complicated (systemic symptoms)? @ -Uncomplicated Side effects of treatment? @ -No Exacerbation, Progression, or Severe Exacerbation? @ -No Poses a threat to life or bodily function? How? (Chest pain, [place], CO, pneumonia, PE, COPD, DKA, ARF, appy, cholecystitis, CVA, Diverticulitis, Homicidal, Suicidal, threat to staff... and all critical care pts) @ -No - Lab Data Result diagrams: 08/10/22 21:25 08/10/22 21:25 Lab Results 08/10/22 08/10/22 08/10/22 Range/Units 21:25 21:25 21:25 WBC 4.8 (3.8-10.6) k/uL RBC 4.06 (3.80-5.40) m/uL Hgb 12.5 (11.4-16.0) gm/dL Hct 36.4 (34.0-46.0) % MCV 89.6 (80.0-100.0) fL MCH 30.8 (25.0-35.0) pg MCHC 34.4 (31.0-37.0) g/dL RDW 12.6 (11.5-15.5) % Plt Count 203 (150-450) k/uL MPV 7.4 Neutrophils % 39 % Lymphocytes % 45 % Monocytes % 7 % Eosinophils % 4 % Basophils % 1 % Neutrophils # 1.9 (1.3-7.7) k/uL Lymphocytes # 2.2 (1.0-4.8) k/uL Monocytes # 0.3 (0-1.0) k/uL Eosinophils # 0.2 (0-0.7) k/uL Basophils # 0.1 (0-0.2) k/uL Sodium (137-145) mmol/L Potassium (3.5-5.1) mmol/L Chloride (98-107) mmol/L Carbon Dioxide (22-30) mmol/L Anion Gap mmol/L BUN (7-17) mg/dL Creatinine (0.52-1.04) mg/dL Est GFR (CKD-EPI)AfAm (>60 ml/min/1.73 sqM) Est GFR (CKD-EPI)NonAf (>60 ml/min/1.73 sqM) Glucose (74-99) mg/dL Plasma Lactic Acid Chun (0.7-2.0) mmol/L Calcium (8.4-10.2) mg/dL Total Bilirubin (0.2-1.3) mg/dL AST (14-36) U/L ALT (4-34) U/L Alkaline Phosphatase (38-126) U/L Total Protein (6.3-8.2) g/dL Albumin (3.5-5.0) g/dL Lipase (23-300) U/L Urine Color Light Yellow Urine Appearance Clear (Clear) Urine pH 7.0 (5.0-8.0) Ur Specific [place] 1.014 (1.001-1.035) Urine Protein Negative (Negative) Urine Glucose (UA) Negative (Negative) Urine Ketones Negative (Negative) Urine Blood Small H (Negative) Urine Nitrite Negative (Negative) Urine Bilirubin Negative (Negative) Urine Urobilinogen <2.0 (<2.0) mg/dL Ur Leukocyte Esterase Negative (Negative) Urine RBC 5 (0-5) /hpf Urine WBC <1 (0-5) /hpf Ur Squamous Epith Cells <1 (0-4) /hpf Urine HCG, Qual Not Detected (Not Detectd) 08/10/22 08/10/22 Range/Units 21:25 21:25 WBC (3.8-10.6) k/uL RBC (3.80-5.40) m/uL Hgb (11.4-16.0) gm/dL Hct (34.0-46.0) % MCV (80.0-100.0) fL MCH (25.0-35.0) pg MCHC (31.0-37.0) g/dL RDW (11.5-15.5) % Plt Count (150-450) k/uL MPV Neutrophils % % Lymphocytes % % Monocytes % % Eosinophils % % Basophils % % Neutrophils # (1.3-7.7) k/uL Lymphocytes # (1.0-4.8) k/uL Monocytes # (0-1.0) k/uL Eosinophils # (0-0.7) k/uL Basophils # (0-0.2) k/uL Sodium 141 (137-145) mmol/L Potassium 3.8 (3.5-5.1) mmol/L Chloride 105 (98-107) mmol/L Carbon Dioxide 29 (22-30) mmol/L Anion Gap 7 mmol/L BUN 16 (7-17) mg/dL Creatinine 0.64 (0.52-1.04) mg/dL Est GFR (CKD-EPI)AfAm >90 (>60 ml/min/1.73 sqM) Est GFR (CKD-EPI)NonAf >90 (>60 ml/min/1.73 sqM) Glucose 116 H (74-99) mg/dL Plasma Lactic Acid Chun 1.6 (0.7-2.0) mmol/L Calcium 9.2 (8.4-10.2) mg/dL Total Bilirubin 0.3 (0.2-1.3) mg/dL AST 121 H (14-36) U/L ALT 56 H (4-34) U/L Alkaline Phosphatase 86 (38-126) U/L Total Protein 7.2 (6.3-8.2) g/dL Albumin 4.5 (3.5-5.0) g/dL Lipase 122 (23-300) U/L Urine Color Urine Appearance (Clear) Urine pH (5.0-8.0) Ur Specific [place] (1.001-1.035) Urine Protein (Negative) Urine Glucose (UA) (Negative) Urine Ketones (Negative) Urine Blood (Negative) Urine Nitrite (Negative) Urine Bilirubin (Negative) Urine Urobilinogen (<2.0) mg/dL Ur Leukocyte Esterase (Negative) Urine RBC (0-5) /hpf Urine WBC (0-5) /hpf Ur Squamous Epith Cells (0-4) /hpf Urine HCG, Qual (Not Detectd) Disposition Clinical Impression: Abdominal pain Disposition: HOME SELF-CARE Condition: Stable Instructions (If sedation given, give patient instructions): Abdominal Pain (ED) Additional Instructions: Please return to the Emergency Department if symptoms worsen or any other concerns. Prescriptions: Ondansetron Odt [Zofran Odt] 4 mg PO Q8HR PRN #14 tab PRN Reason: Nausea Is patient prescribed a controlled substance at d/c from ED?: No Referrals: Hemal Lance DO [Primary Care Provider] - 1-2 days Time of Disposition: 23:18
[2022-08-10 22:11] VITALS: RESP 17
--- NOTE | 2022-08-10 22:33 | CT ---
EXAMINATION TYPE: CT abdomen pelvis w con DATE OF EXAM: 08/10/2022 COMPARISON: None HISTORY: epigastric pain CT DLP: 735 mGycm Automated exposure control for dose reduction was used. CONTRAST: Performed with IV Contrast, patient injected with 100 mL of Isovue 300. Lung bases are clear. No pleural effusion. Heart size is normal. No pericardial effusion. Liver and s pleen are intact. There are clips from cholecystectomy. Stomach is intact. There is no pancreatic mas s. The bile ducts are not dilated. There is no adrenal mass. Kidneys show satisfactory contrast opacification. No hydronephrosis. Ureter s are not dilated. Bladder distends smoothly. No inguinal hernia. Uterus is anteverted. There is IUD in the uterine fundus. No pelvic mass. No free fluid in the pelvis. There is no retroperitoneal adeno marcellus. Appendix is posterior and appears normal. There is no mesenteric edema. No ascites or free air. No sign of a bowel obstruction. The lumbar vert ebrae have normal alignment. Posterior elements are intact. No compression fracture. Bony pelvis is i ntact. The hip joints are intact. IMPRESSION: Negative CT scan abdomen and pelvis. Normal appendix.
[2022-08-10 22:35] LABS: Basophils # (A) 0.1 k/uL (0-0.2); Basophils % (A) 1 %; Eosinophils # (A) 0.2 k/uL (0-0.7); Eosinophils % (A) 4 %; HCT 36.4 % (34.0-46.0); HGB 12.5 gm/dL (11.4-16.0); Lymphocytes # (A) 2.2 k/uL (1.0-4.8); Lymphocytes % (A) 45 %; MCH 30.8 pg (25.0-35.0); MCHC 34.4 g/dL (31.0-37.0); MCV 89.6 fL (80.0-100.0); Mean Platelet Volume 7.4; Monocytes # (A) 0.3 k/uL (0-1.0); Monocytes % (A) 7 %; Neutrophils # (A) 1.9 k/uL (1.3-7.7); Neutrophils % (A) 39 %; Platelet Count 203 k/uL (150-450); RBC 4.06 m/uL (3.80-5.40); RDW 12.6 % (11.5-15.5); WBC 4.8 k/uL (3.8-10.6)
[2022-08-10] MEDS ORDERED: MAG HYDROX/AL HYDROX/SIMETH 30 ML, HYOSCYAMINE ELIXIR 10 ML PO STA ×2 (22:36)
[2022-08-10] MEDS ORDERED: METOCLOPRAMIDE 5 MG/ML 2 ML VIAL IVP STA (22:49)
[2022-08-10] MEDS ORDERED: METOCLOPRAMIDE 10 MG TAB PO STA (23:17)
[2022-08-10] MEDS ORDERED: ONDANSETRON 4 MG ODT STARTER PACK 2 TAB BTL PO STA (23:18)
[2022-08-10 23:39] VITALS: BP 121/78; PULSE 92
== END 2022-08-10 23:39 | disposition home or self-care (01) ==
LOC: EC 20:39
DX: K57.90 Diverticulosis of intestine, part unspecified, without perforation or abscess without bleeding (principal); J45.909 Unspecified asthma, uncomplicated; Z79.82 Long term (current) use of aspirin
CPT/HCPCS: 36415; 80053; 83605; 83690; 85025; 81001; 81025; 74177; 99284; 96374; 96375 ×2; 96361 ×2; J2765; J2405; S0119; J1170; Q9967

== ENCOUNTER → 2023-03-24 | Outpatient (CLI) | payer BC ==
--- NOTE | 2023-03-26 16:46 | MM ---
Reason for Exam: Screening (asymptomatic). Last mammogram was performed 3 year(s) and 4 month(s) ago. Patient History: Menarche at age 14. First Full-Term at age 30. Hormonal Contraceptives for 8 years from age 20 until age 28. Maternal grandmother had breast cancer, age 50. Risk Values: Lakeisha 5 year model risk: 0.6%. NCI Lifetime model risk: 11.1%. Prior Study Comparison: 04/29/2016 Bilateral Screening Mammogram, [facility]. 02/24/2018 Bilateral Screening Mammogram, [facility]. 12/14/2019 Bilateral Screening Mammogram, [facility]. Tissue Density: The breast tissue is heterogeneously dense. This may lower the sensitivity of mammography. Findings: Analyzed By CAD. There is no suspicious group of microcalcifications or new suspicious mass in either breast. Overall Assessment: Negative, BI-RAD 1 Management: Screening Mammogram of both breasts in 1 year. . Patient should continue monthly self-breast exams. A clinical breast exam by your physician is recommended on an annual basis. This exam should not preclude additional follow-up of suspicious palpable abnormalities. Note on Lakeisha scores and lifetime risk: 1. A Lakeisha score greater than 3% is considered moderate risk. If this is the case, consider specialist referral to assess eligibility for a risk reducing agent. 2. If overall lifetime risk for the development of breast cancer is 20% or higher, the patient may qualify for future screening with alternating mammogram and breast MRI. Electronically signed and approved by: Flor Mar M.D. Radiologist
== END | disposition home or self-care (01) ==
LOC: RADMAMWWP 14:07
PROVIDERS: ATTEND Obstetrics & Gynecology
DX: Z12.31 Encounter for screening mammogram for malignant neoplasm of breast (principal); Z80.3 Family history of malignant neoplasm of breast
CPT/HCPCS: 77063; 77067

== ENCOUNTER → 2024-03-27 | Outpatient (CLI) | payer BC ==
--- NOTE | 2024-03-28 17:23 | MM ---
Reason for Exam: Screening (asymptomatic). Last screening mammogram was performed 12 month(s) ago. Patient History: Menarche at age 14. First Full-Term at age 30. Patient has history of breast feeding. Hormonal Contraceptives for 8 years from age 20 until age 28. Maternal grandmother had breast cancer, age 50. Risk Values: Lakeisha 5 year model risk: 0.7%. NCI Lifetime model risk: 11.0%. Prior Study Comparison: 02/24/2018 Bilateral Screening Mammogram, [facility]. 12/14/2019 Bilateral Screening Mammogram, [facility]. 03/24/2023 Bilateral MG 3D screening mammo w/cad, [facility]. Tissue Density: The breasts are heterogeneously dense, which may obscure small masses. Findings: Analyzed By CAD. Nipple retraction on the right particularly on the MLO view appears to be increased. Additional view used in the subareolar region are recommended. Otherwise, bilateral areas of asymmetric density are unchanged. Overall Assessment: Incomplete: need additional imaging evaluation, BI-RAD 0 Management: Special View Mammogram of the right breast. Diagnostic Breast Ultrasound of the right breast. Additional views right breast as well as subareolar and periareolar right breast ultrasound. The nipple retraction appears to have increased from prior exams. [facility] will attempt to contact patient to return for supplemental views and ultrasound if indicated. Electronically signed and approved by: Flor Mar M.D. Radiologist
== END | disposition home or self-care (01) ==
LOC: RADMAMWWP 15:35
PROVIDERS: ATTEND Family Medicine
DX: Z80.3 Family history of malignant neoplasm of breast
CPT/HCPCS: 77063; 77067

== ENCOUNTER → 2024-04-09 | Outpatient (CLI) | payer BC ==
--- NOTE | 2024-04-09 14:27 | MM ---
Reason for Exam: Additional evaluation requested from abnormal screening. Last screening mammogram was performed less than 1 month ago. Patient History: Menarche at age 14. First Full-Term at age 30. Patient has history of breast feeding. Hormonal Contraceptives for 8 years from age 20 until age 28. Maternal grandmother had breast cancer, age 50. Risk Values: Lakeisha 5 year model risk: 0.7%. NCI Lifetime model risk: 11.0%. Prior Study Comparison: 04/29/2016 Bilateral Screening Mammogram, [facility]. 02/24/2018 Bilateral Screening Mammogram, [facility]. 12/14/2019 Bilateral Screening Mammogram, [facility]. 03/24/2023 Bilateral MG 3D screening mammo w/cad, [facility]. 03/27/2024 Bilateral MG 3D screening mammo w/cad, [facility]. Tissue Density: Right: The breasts are heterogeneously dense, which may obscure small masses. Findings: Analyzed By CAD. The pattern is symmetrical. On the current compression views and mediolateral view nipple retractions appreciated. On the craniocaudal view there may be some thickening lateral retroareolar region of dural 0.5 cm. On ultrasound can evaluate this region. The patient does report potential palpable abnormality along the inferior aspect of the. Areolar region on the right. Under the marker placed by the patient no suspicious mammographic abnormality is evident. No suspicious groups of microcalcifications, spiculated or lobular masses, architectural distortion or other secondary signs of malignancy are mammographically apparent. Overall Assessment: Incomplete: need additional imaging evaluation, BI-RAD 0 Management: Diagnostic Breast Ultrasound of the right breast. A negative mammogram report should not preclude additional follow up of suspicious palpable abnormalities. Patient should continue monthly self breast exam. A clinical breast exam by your physician is recommended on an annual basis and results should be correlated with mammographic findings. Note on Lakeisha scores and lifetime risk: 1. A Lakeisha score greater than 3% is considered moderate risk. If this is the case, consider specialist referral to assess eligibility for a risk reducing agent. 2. If overall lifetime risk for the development of breast cancer is 20% or higher, the patient may qualify for future screening with alternating mammogram and breast MRI. [facility], , 04/09/2024 2:06 PM. Electronically signed and approved by: Tmi Randolph D.O. Radiologis
--- NOTE | 2024-04-09 14:45 | USB ---
Patient History: Menarche at age 14. First Full-Term at age 30. Patient has history of breast feeding. Hormonal Contraceptives for 8 years from age 20 until age 28. Maternal grandmother had breast cancer, age 50. Risk Values: Lakeisha 5 year model risk: 0.7%. NCI Lifetime model risk: 11.0%. Prior Study Comparison: 12/14/2019 Bilateral Screening Mammogram, [facility]. 03/24/2023 Bilateral MG 3D screening mammo w/cad, [facility]. 03/27/2024 Bilateral MG 3D screening mammo w/cad, [facility]. Findings: The area of palpable concern of the right breast, the axilla of the right breast and the retroareolar of the right breast were scanned. A 0.2 cm cystlike area too small to classify these as posterior wall enhancement. Through transmission well seen. This appears to correlate with the palpable abnormality position. Appears to be contralateral side. Increased density compression caudal view. Clinical management and Monitoring is recommended. Follow-up mammogram and ultrasound, attention subareolar right breast, 6 months for right breast. Overall Assessment: Probably benign, BI-RAD 3 Management: Diagnostic Mammogram of the right breast in 6 months. Diagnostic Breast Ultrasound of the right breast in 6 months. A clinical breast exam by your physician is recommended on an annual basis and results should be correlated with mammographic findings. This exam should not preclude additional follow-up of suspicious palpable abnormalities. Results were given to the patient verbally at the time of exam. [facility], , 04/09/2024 2:42 PM. Electronically signed and approved by: Tim Randolph D.O. Radiologis
== END | disposition home or self-care (01) ==
LOC: RADMAMWWP 13:24
PROVIDERS: ATTEND Family Medicine
DX: R92.8 Other abnormal and inconclusive findings on diagnostic imaging of breast
CPT/HCPCS: 77061; 77065

== ENCOUNTER → 2024-10-22 | Outpatient (CLI) | payer BC ==
--- NOTE | 2024-10-22 07:36 | MM ---
Reason for Exam: Follow-up at short interval from prior study. Last screening mammogram was performed 7 month(s) ago. Patient History: Menarche at age 14. First Full-Term at age 30. Patient has history of breast feeding. Hormonal Contraceptives for 8 years from age 20 until age 28. Maternal grandmother had breast cancer, age 50. Risk Values: Lakeisha 5 year model risk: 0.7%. NCI Lifetime model risk: 10.9%. Prior Study Comparison: 03/24/2023 Bilateral MG 3D screening mammo w/cad, [facility]. 03/27/2024 Bilateral MG 3D screening mammo w/cad, [facility]. 04/09/2024 Right MG 3D work up w/cad RT, [facility]. Tissue Density: Right: The breasts are heterogeneously dense, which may obscure small masses. Findings: Analyzed By CAD. Slightly retracted appearance of the right nipple is unchanged for 6 months as is the subareolar asymmetric density on the MLO view. Overall Assessment: Incomplete: need additional imaging evaluation, BI-RAD 0 Management: Diagnostic Breast Ultrasound of the right breast. [facility], , 10/22/2024 7:33 AM. Electronically signed and approved by: Flor Mar M.D. Radiologist
--- NOTE | 2024-10-22 07:53 | USB ---
Reason for Exam: Follow-up at short interval from prior study. Patient History: Menarche at age 14. First Full-Term at age 30. Patient has history of breast feeding. Hormonal Contraceptives for 8 years from age 20 until age 28. Maternal grandmother had breast cancer, age 50. Risk Values: Lakeisha 5 year model risk: 0.7%. NCI Lifetime model risk: 10.9%. Technique: Method: Targeted. Prior Study Comparison: 03/24/2023 Bilateral MG 3D screening mammo w/cad, [facility]. 03/27/2024 Bilateral MG 3D screening mammo w/cad, [facility]. 04/09/2024 Right MG 3D work up w/cad RT, [facility]. Findings: The area of palpable concern of the right breast, the axilla of the right breast and the retroareolar of the right breast were scanned. Targeted ultrasound subareolar right breast, at the patient's 6:00 periareolar palpable site, and within the axilla. The previous tiny 2 mm cystic area behind the nipple has resolved. At the patient's 6:00 palpable site, 1 cm from the nipple, no discrete abnormality is seen. No other solid or cystic lesion or axillary adenopathy.. Overall Assessment: Probably benign, BI-RAD 3 Management: Diagnostic Mammogram of both breasts in 5 months. Total one-year follow-up right breast and annual exam of the left breast. A clinical breast exam by your physician is recommended on an annual basis and results should be correlated with mammographic findings. This exam should not preclude additional follow-up of suspicious palpable abnormalities. Results were given to the patient verbally at the time of exam. [facility], , 10/22/2024 7:50 AM. Electronically signed and approved by: Flor Mar M.D. Radiologist
== END | disposition home or self-care (01) ==
LOC: RADMAMWWP 07:17
PROVIDERS: ATTEND Family Medicine
DX: N60.01 Solitary cyst of right breast (principal); R92.331 Mammographic heterogeneous density, right breast; Z80.3 Family history of malignant neoplasm of breast; Z92.0 Personal history of contraception
CPT/HCPCS: 77061; 77065